=== PATIENT | female | born 1950 | race Caucasian/White ===

== ENCOUNTER 2020-04-11 12:23 | Outpatient (REF) | payer MEDICARE, SELFPAY ==
[2020-04-11 12:29] VITALS: BMI 33.2
[2020-04-11 12:30] VITALS: BP 174/84; PULSE 91; RESP 16; TEMP 36.3; O2SAT 97
== END 2020-04-11 12:24 | disposition home or self-care (01) ==
LOC: HO.MS 12:23
PROVIDERS: Visit Provider Ophthalmology
PROC: (CPT 67105; principal; 2020-04-11 12:30)
DX: H33.311 Horseshoe tear of retina without detachment, right eye (principal); Z83.511 Family history of glaucoma; Z96.1 Presence of intraocular lens; I10 Essential (primary) hypertension; Z79.899 Other long term (current) drug therapy; Z88.1 Allergy status to other antibiotic agents; Z88.7 Allergy status to serum and vaccine
CPT/HCPCS: 67105